=== PATIENT | female | born 1995 | race Hispanic/Latino ===

== ENCOUNTER 2019-01-03 00:17 | Observation (INO) | payer MEDICAID ==
[~2019-01-03] VITALS: Ht 149.9 cm; Wt 83.0 kg
[2019-01-03] MEDS ORDERED: PREN1TAB80 PO (00:37)
[2019-01-03 00:52] LABS: BILIRUBIN,URINE Negative (NEGATIVE); COLOR,URINE Yellow (YELLOW); GLUCOSE, URINE (UA) Negative (NEGATIVE); KETONES,URINE 40 mg/dL (NEGATIVE); LEUKOCYTE ESTERASE ,URINE Trace (NEGATIVE); NITRATE,URINE Negative (NEGATIVE); OCCULT BLOOD,URINE Negative (NEGATIVE); PROTEIN,URINE Negative (NEGATIVE)
[2019-01-03 00:56] LABS: APPEARANCE,URINE CLOUDY (CLEAR)
[2019-01-03 00:59] LABS: AMPHET/METH SCREEN,URINE NEGATIVE (NEGATIVE); BARBITURATE SCREEN, URINE NEGATIVE (NEGATIVE); BENZODIAZEPINES SCREEN,URINE NEGATIVE (NEGATIVE); CANNABINOID SCREEN,URINE NEGATIVE (NEGATIVE); COCAINE SCREEN,URINE NEGATIVE (NEGATIVE); OPIATE SCREEN,URINE NEGATIVE (NEGATIVE); PHENCYCLIDINE SCREEN,URINE NEGATIVE (NEGATIVE)
[2019-01-03 01:08] LABS: AMORPHOUS SEDIMENT,UR Moderate /LPF (None Seen); BACTERIA,URINE Moderate /HPF (None Seen); RBC,URINE 0-1 /HPF (0-1)
[2019-01-03 01:10] VITALS: BP 132/78
[2019-01-03] MEDS ORDERED: ACETAMINOPHEN-CODEINE 300/30MG TAB PO ONE (01:15)
== END 2019-01-03 02:45 | disposition home or self-care (01) ==
LOC: EDH 00:17 → LDH 00:18
PROVIDERS: ADMIT Specialist; ATTEND Specialist
DX: O26.893 Other specified pregnancy related conditions, third trimester (principal); R10.9 Unspecified abdominal pain; M54.5 Low back pain; O99.323 Drug use complicating pregnancy, third trimester; F12.90 Cannabis use, unspecified, uncomplicated; F14.90 Cocaine use, unspecified, uncomplicated; Z3A.28 28 weeks gestation of pregnancy
CPT/HCPCS: 80305; 81001; 99284; G0378 ×2

== ENCOUNTER 2019-03-17 16:57 | Inpatient (IN) | payer MEDICAID ==
[~2019-03-17] VITALS: Ht 149.9 cm; Wt 82.6 kg
[~2019-03-17 16:57] MED LIST: PREN1TAB80 PO
[2019-03-17] MEDS ORDERED: LACTATED RINGERS 1000ML 1,000 ML IV PRN (17:38)
[2019-03-17] MEDS ORDERED: MISOPROSTOL 25 MCG TABLET VG SCH (17:45)
[2019-03-17] MEDS ORDERED: OXYTOCIN-LR 20 UNITS/1000 ML 1,000 ML IV SCH (18:00)
[2019-03-17 18:03] LABS: MEAN CORPUSCULAR HEMOGLOBIN 24.5 pg (27.0-33.0); MEAN CORPUSCULAR HGB CONC 31.7 g/dL (32.0-36.0); MEAN CORPUSCULAR VOLUME 77.3 fL (79-99); PLATELET COUNT (AUTO) 367 K/uL (130-400); RED BLOOD CELL COUNT(AUTO) 3.88 MIL/uL (4.00-5.50); RED CELL DISTRIBUTION WIDTH 15.7 % (11.0-15.5); WHITE BLOOD COUNT (AUTO) 11.3 K/uL (4.8-10.8)
[2019-03-17 18:09] LABS: APPEARANCE,URINE Clear (CLEAR); BILIRUBIN,URINE Negative (NEGATIVE); COLOR,URINE Yellow (YELLOW); GLUCOSE, URINE (UA) Negative (NEGATIVE); KETONES,URINE Negative (NEGATIVE); LEUKOCYTE ESTERASE ,URINE Trace (NEGATIVE); NITRATE,URINE Negative (NEGATIVE); OCCULT BLOOD,URINE Negative (NEGATIVE); PROTEIN,URINE Trace mg/dL (NEGATIVE)
[2019-03-17 18:17] LABS: AMPHET/METH SCREEN,URINE NEGATIVE (NEGATIVE); BARBITURATE SCREEN, URINE NEGATIVE (NEGATIVE); BENZODIAZEPINES SCREEN,URINE NEGATIVE (NEGATIVE); CANNABINOID SCREEN,URINE NEGATIVE (NEGATIVE); COCAINE SCREEN,URINE NEGATIVE (NEGATIVE); OPIATE SCREEN,URINE NEGATIVE (NEGATIVE); PHENCYCLIDINE SCREEN,URINE NEGATIVE (NEGATIVE)
[2019-03-17 18:19] LABS: BACTERIA,URINE Rare /HPF (None Seen); MUCUS,URINE Few LPF (None Seen)
[2019-03-18] MEDS: MEPERIDINE-PF 50 MG/ML SYG IVP SCH (09:51)
[2019-03-18] MEDS: PROMETHAZINE HCL 25 MG/ML 1ML AMPULE IM SCH (09:51)
[2019-03-18] MEDS ORDERED: LIDOCAINE HCL 1% 20 ML VIAL ONE (11:11)
[2019-03-18] MEDS ORDERED: ROPIVACAINE 0.2% 100ML VIAL 100 ML EP SCH (11:30)
[2019-03-18] MEDS ORDERED: EPHEDRINE SULFATE 50 MG/ML AMPULE IVP PRN (11:30)
[2019-03-18] MEDS ORDERED: NALOXONE HCL 0.4 MG/1 ML ML IV PRN (11:30)
[2019-03-18] MEDS ORDERED: LACTATED RINGERS 500 ML 500 ML IV PRN (11:30)
[2019-03-18] MEDS ORDERED: DURAMORPH PF1 MG/ML 10ML AMP IV ONE ×2 (12:35→18:44)
[2019-03-18] MEDS ORDERED: OXYTOCIN 10 USP UNITS/ML ONE ×4 (12:52→19:15)
[2019-03-18] MEDS ORDERED: CEFAZOLIN SODIUM 1 GM VIAL IVP PRN (18:30)
[2019-03-18] MEDS ORDERED: MEPERIDINE-PF 50 MG/ML SYG ONE (18:48)
[2019-03-18] MEDS ORDERED: CEFAZOLIN SODIUM 1 GM VIAL IVP ONE (18:48)
[2019-03-18] MEDS ORDERED: DEXTROSE 5 %-0.45 % NACL 1,000 ML IV PRN (19:30)
[2019-03-18] MEDS ORDERED: SODIUM CHLORIDE 0.9% 10 ML VIAL IVP PRN (19:30)
[2019-03-18] MEDS ORDERED: OXYTOCIN-LR 20 UNITS/1000 ML 1,000 ML IV PRN (19:30)
[2019-03-18] MEDS ORDERED: MEPERIDINE-PF 75 MG/ML SYG IM PRN (19:30)
[2019-03-18] MEDS ORDERED: PROMETHAZINE HCL 25 MG/ML 1ML AMPULE IM PRN (19:30)
[2019-03-18 21:30] VITALS: BP 118/81
[2019-03-18 21:45] VITALS: BP 129/73
[2019-03-18 23:46] VITALS: BP 122/69
[2019-03-19 03:40] VITALS: BP 111/63
[2019-03-19] MEDS: MEPERIDINE-PF 50 MG/ML SYG IVP SCH (03:48)
[2019-03-19] MEDS: PROMETHAZINE HCL 25 MG/ML 1ML AMPULE IM SCH (03:58)
[2019-03-19] MEDS ORDERED: FLU VACC QS2019-20 36MOS UP/PF 60 MCG/0.5 ML ML IM ONE ×2 (04:00→08:46)
[2019-03-19 06:17] LABS: HEMATOCRIT 27.7 % (36-48); MEAN CORPUSCULAR HEMOGLOBIN 24.2 pg (27.0-33.0); MEAN CORPUSCULAR HGB CONC 31.4 g/dL (32.0-36.0); MEAN CORPUSCULAR VOLUME 77.3 fL (79-99); PLATELET COUNT (AUTO) 329 K/uL (130-400); RED BLOOD CELL COUNT(AUTO) 3.58 MIL/uL (4.00-5.50); RED CELL DISTRIBUTION WIDTH 15.9 % (11.0-15.5); WHITE BLOOD COUNT (AUTO) 18.3 K/uL (4.8-10.8)
[2019-03-19] MEDS ORDERED: BISACODYL 10 MG SUPP.RECT RC PRN (07:45)
[2019-03-19] MEDS ORDERED: SODIUM CHLORIDE 0.9% 10 ML VIAL IVP PRN (07:45)
[2019-03-19] MEDS ORDERED: IBUPROFEN 600 MG TABLET PO PRN (07:45)
[2019-03-19] MEDS ORDERED: ACETAMINOPHEN EXTRA STRENGTH 500 MG TABLET PO PRN (07:45)
[2019-03-19] MEDS ORDERED: HYDROCODONE/ACETAMINOPHEN 5/325 MG TAB PO PRN (07:45)
[2019-03-19] MEDS ORDERED: LANOLIN 30GM OINTMENT TP PRN (07:45)
--- NOTE | 2019-03-19 08:30 | NUR ---
ASSESSMENT: RECEIVED SITTING UP IN CHAIR. EXPLAINED POC AND UNDERSTANDING VERBALIZED, CALL VASQUES AT HER SIDE.
[2019-03-19] MEDS: DOCUSATE SODIUM 100 MG CAP PO SCH ×2 (08:37→21:22)
[2019-03-19] MEDS: SIMETHICONE 80 MG TAB.CHEW PO PRN ×3 (08:37→21:22)
[2019-03-19] MEDS: ACETAMINOPHEN-CODEINE 300/30MG TAB PO PRN ×2 (08:39→22:50)
[2019-03-19 08:51] VITALS: BP 116/72
[2019-03-19] MEDS: DIPH,PERTUSS(ACELL),TET VAC/PF 0.5 ML VIAL IM SCH (08:58)
--- NOTE | 2019-03-19 10:15 | NUR ---
ASSESSMENT: DR ESCALONA ASSESSED PT , ABD INCISION, DISCUSSED POC.
--- NOTE | 2019-03-19 10:51 | NUR ---
ELIMINATION: AMB TO BR, VOIDED LG AMTS OF URINE. INSTRUCTED ON [facility] AND RETURNED DEMONSTRATION.
--- NOTE | 2019-03-19 11:32 | NUR ---
ACTIVITY:AMB IN HALLWAY.
[2019-03-19 12:00] VITALS: BP 112/67
--- NOTE | 2019-03-19 13:23 | NUR ---
ACTIVITY: AMB IN THE HALLWAY.
--- NOTE | 2019-03-19 14:26 | NUR ---
HYGEINE: TAKING SHOWER.
[2019-03-19 16:15] VITALS: BP 114/70
[2019-03-19 19:20] VITALS: BP 108/77
[2019-03-19] MEDS: IBUPROFEN 800 MG TAB PO SCH (20:08)
[2019-03-20 00:19] VITALS: BP 91/60
[2019-03-20 03:21] VITALS: BP 119/84
[2019-03-20] MEDS: IBUPROFEN 800 MG TAB PO SCH ×3 (04:18→20:21)
[2019-03-20 07:24] VITALS: BP 108/69
[2019-03-20] MEDS: DIPH,PERTUSS(ACELL),TET VAC/PF 0.5 ML VIAL IM SCH (07:45)
[2019-03-20] MEDS: DOCUSATE SODIUM 100 MG CAP PO SCH ×2 (09:01→20:21)
[2019-03-20] MEDS: SIMETHICONE 80 MG TAB.CHEW PO PRN (09:01)
--- NOTE | 2019-03-20 11:29 | NUR ---
HX OF THC AND COCAINE ABUSE PRIOR TO Sw met with pt and her Nallely Diaz [phone]. This is first child for the couple, son OMAYRA DIAZ. Pt independent, works at [employer] has Medicaid and WIC, works at [employer]. Couple has basic items for including car seat and [facility] Dr Irene will follow. Couple has good family support. 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 Pt also admits to trying cocaine the month before she confirmed her . Pt denies any drug use during and was negative on delivery. Couple educated on meconium testing and possible CPS reporting if results are positive. Couple voices understanding. Pt refused resources offered on substance abuse Pt denies any hx of abuse, domestic violence, legal, CPS or mental health issues. SW to follow and resport to CPS if meconium results are positive. Addendum: 03/20/19 at 1137 by BILLIE GALLO Amended: Links added.
[2019-03-20 11:42] VITALS: BP 103/58
[2019-03-20 16:49] VITALS: BP 99/65
[2019-03-20] MEDS: ACETAMINOPHEN-CODEINE 300/30MG TAB PO PRN (16:52)
[2019-03-20 19:25] VITALS: BP 110/77
--- NOTE | 2019-03-20 21:45 | NUR ---
pt has been discharged since 1729 by Elisabeth Tim, awaiting baby's discharge. pt brought to private car at this time via wheelchair by Tk KING, accompanied by spouse. baby on pt's arms. Pt is in stable condition. Addendum: 03/20/19 at 2316 by SUSIE SHERWOOD RN Amended: Links added.
[2019-03-21 06:10] LABS: HEPATITIS Bs ANTIGEN SCREEN P Negative (Negative)
== END 2019-03-20 21:45 | disposition home or self-care (01) | DRG 540 ==
LOC: LDH 16:57 → WSH 03-18 21:30
PROVIDERS: ADMIT Specialist; ATTEND Specialist
PROC: 3E0234Z Introduction of Serum, Toxoid and Vaccine into Muscle, Percutaneous Approach (ICD-10-PCS; 2019-03-18)
PROC: 3E0134Z Introduction of Serum, Toxoid and Vaccine into Subcutaneous Tissue, Percutaneous Approach (ICD-10-PCS; 2019-03-18)
PROC: 3E02340 Introduction of Influenza Vaccine into Muscle, Percutaneous Approach (ICD-10-PCS; 2019-03-18)
PROC: 10D00Z1 Extraction of Products of Conception, Low, Open Approach (ICD-10-PCS; principal; 2019-03-18 18:30)
DX: O62.2 Other uterine inertia (principal); O69.81X0 Labor and delivery complicated by cord around neck, without compression, not applicable or unspecified; Z23 Encounter for immunization; Z37.0 Single live birth; Z3A.39 39 weeks gestation of pregnancy
CPT/HCPCS: 36415; 59510; 80305; 81001; 85027; 86592; 86850; 86900; 86901; 87340; 90715; 96360; A4314; G0008; G0378; J0690; J2175; J2274; J2550; J2590; J2795; J7120; Q2035